=== PATIENT | female | born 1980 | race Two or more races ===

== ENCOUNTER 2017-02-11 19:20 | Outpatient (CLI) | payer MEDICAID ==
[2017-02-11 20:22] LABS: AMNISURE NEGATIVE (NEGATIVE)
[2017-02-11 20:23] LABS: AMNI LOT 55709118; AMNI OBC PASS
== END 2017-02-11 22:42 | disposition home or self-care (01) ==
LOC: LDOP 19:20
PROVIDERS: ATTEND Obstetrics & Gynecology
DX: O09.523 Supervision of elderly multigravida, third trimester (principal); O42.913 Preterm premature rupture of membranes, unspecified as to length of time between rupture and onset of labor, third trimester; O26.893 Other specified pregnancy related conditions, third trimester; R10.2 Pelvic and perineal pain; Z3A.34 34 weeks gestation of pregnancy
CPT/HCPCS: 59025; 76815; 84112; 87210; 87808; 89060; 99211; G0463; Q0114

== ENCOUNTER 2017-02-21 11:14 | Observation (INO) | payer MEDICAID ==
[~2017-02-21] VITALS: Ht 160 cm; Wt 81.8 kg
[2017-02-21 13:15] VITALS: BP 106/65
[2017-02-21] MEDS ORDERED: BETAMETHASONE 6 MG/ML, 5ML IM SCH (13:30)
[2017-02-21] MEDS ORDERED: ONDANSETRON 2MG/ML, 2ML IVPush PRN (13:30)
[2017-02-21] MEDS ORDERED: PENICILLIN GK 5,000,000 UNITS in DEXTROSE 5% 100 ML IVPB ONE (13:30)
[2017-02-21] MEDS: LACTATED RINGERS 1,000 ML IV PRN ×2 (13:48→15:06)
[2017-02-21] MEDS ORDERED: PLEASE ENTER ALLERGIES MC SCH ×2 (14:00)
[2017-02-21] MEDS ORDERED: BETAMETHASONE 6 MG/ML, 5ML IM ONE (14:03)
[2017-02-21 14:38] LABS: HEMATOCRIT 35.6 % (34.6-47.8)
[2017-02-21] MEDS ORDERED: PREN1TAB69 PO (15:34)
[2017-02-21] MEDS ORDERED: SERT50TA5 PO (15:34)
[2017-02-21] MEDS ORDERED: PENICILLIN GK 2,500,000 UNITS in DEXTROSE 5% 100 ML IVPB SCH (16:00)
[2017-02-21] MEDS ORDERED: ONDANSETRON 2MG/ML, 2ML ONE (18:40)
== END 2017-02-21 19:10 | disposition home or self-care (01) ==
LOC: LDOP 11:14 → EDIP 13:36 → LDIP 15:36
PROVIDERS: ADMIT Obstetrics & Gynecology; ATTEND Obstetrics & Gynecology
DX: O62.9 Abnormality of forces of labor, unspecified (principal); O26.893 Other specified pregnancy related conditions, third trimester; M79.605 Pain in left leg; R19.7 Diarrhea, unspecified; O21.2 Late vomiting of pregnancy; Z3A.34 34 weeks gestation of pregnancy
CPT/HCPCS: 36415; 59025; 76815; 81001; 85025; 86850; 86900; 87081; 89060; 93971; 96361; 96365; 96366; 96372; 96375; G0378; J0702; J2405; J2540; J7120; 96360; 96374; Q0114

== ENCOUNTER 2017-02-25 20:44 | Outpatient (CLI) | payer MEDICAID ==
[~2017-02-25] VITALS: Ht 160 cm; Wt 83.0 kg
[~2017-02-25 20:44] MED LIST: PREN1TAB69 PO; SERT50TA5 PO
[2017-02-25 20:48] VITALS: BP 119/56
== END 2017-02-25 23:25 | disposition home or self-care (01) ==
LOC: LDOP 20:44
PROVIDERS: ATTEND Obstetrics & Gynecology
DX: O09.523 Supervision of elderly multigravida, third trimester (principal); O36.8130 Decreased fetal movements, third trimester, not applicable or unspecified; O45.8X3 Other premature separation of placenta, third trimester; O99.343 Other mental disorders complicating pregnancy, third trimester; O26.893 Other specified pregnancy related conditions, third trimester; R10.2 Pelvic and perineal pain; F32.9 Major depressive disorder, single episode, unspecified; Z3A.34 34 weeks gestation of pregnancy
CPT/HCPCS: 36415; 59025; 82731; 99211; G0463

== ENCOUNTER 2017-03-08 02:18 | Outpatient (CLI) | payer MEDICAID ==
[~2017-03-08] VITALS: Ht 160 cm; Wt 82.3 kg
[2017-03-08 02:22] VITALS: BP 127/59
== END 2017-03-08 04:30 | disposition home or self-care (01) ==
LOC: LDOP 02:18
PROVIDERS: ATTEND Obstetrics & Gynecology
DX: O09.523 Supervision of elderly multigravida, third trimester (principal); O62.9 Abnormality of forces of labor, unspecified; O26.893 Other specified pregnancy related conditions, third trimester; O99.343 Other mental disorders complicating pregnancy, third trimester; R10.9 Unspecified abdominal pain; F32.9 Major depressive disorder, single episode, unspecified; Z3A.36 36 weeks gestation of pregnancy
CPT/HCPCS: 59025; 99211; G0463

== ENCOUNTER 2017-03-15 14:10 | Outpatient (CLI) | payer MEDICAID ==
[2017-03-15 15:00] VITALS: BP 124/75
== END 2017-03-15 16:42 | disposition home or self-care (01) ==
LOC: LDOP 14:10
PROVIDERS: ATTEND Obstetrics & Gynecology
DX: O42.92 Full-term premature rupture of membranes, unspecified as to length of time between rupture and onset of labor (principal); Z3A.37 37 weeks gestation of pregnancy
CPT/HCPCS: 59025; 76815; 89060; 99211; G0463; Q0114

== ENCOUNTER 2017-03-17 04:41 | Inpatient (IN) | payer MEDICAID ==
[~2017-03-17] VITALS: Ht 160 cm; Wt 82.3 kg
[2017-03-17] MEDS ORDERED: OXYTOCIN 30U/ 0.9% NaCL 500ML 500 ML ONE (04:45)
[2017-03-17] MEDS ORDERED: NEWBORN KIT ONE (04:45)
[2017-03-17] MEDS ORDERED: LIDOCAINE 1%, 20ML ONE (04:45)
[2017-03-17] MEDS ORDERED: MISOPROSTOL 200 MCG TABLET ONE (04:45)
[2017-03-17] MEDS ORDERED: FENTANYL PF 100 MCG/2ML ONE (06:47)
[2017-03-17] MEDS ORDERED: OXYTOCIN 30U/ 0.9% NaCL 500ML 500 ML IV ONE (06:48)
[2017-03-17] MEDS ORDERED: OXYTOCIN 30U/ 0.9% NaCL 500ML 500 ML IV PRN (06:48)
[2017-03-17] MEDS: LACTATED RINGERS 1,000 ML IV SCH ×3 (06:57→08:56)
[2017-03-17] MEDS: D5%-LACTATED RINGERS 1,000 ML IV SCH ×3 (06:57→22:57)
[2017-03-17] MEDS ORDERED: TERBUTALINE 1 MG/ML, 1ML IVPush PRN (07:00)
[2017-03-17] MEDS ORDERED: FENTANYL PF 100 MCG/2ML IV PRN (07:00)
[2017-03-17] MEDS ORDERED: CALCIUM CARBONATE 500 MG TAB.CHEW PO PRN ×2 (07:00→13:00)
[2017-03-17] MEDS ORDERED: ONDANSETRON 2MG/ML, 2ML IVPush PRN (07:00)
[2017-03-17] MEDS ORDERED: FENTANYL PF 100 MCG/2ML IVPush PRN (07:00)
[2017-03-17 07:22] LABS: HEMATOCRIT 35.7 % (34.6-47.8); HEMOGLOBIN 12.1 g/dL (11.7-16.4)
[2017-03-17] MEDS ORDERED: BUPIVACAINE/PF 0.25% ONE (07:40)
[2017-03-17] MEDS ORDERED: FENTANYL/BUPIV./NS/PF 250 ML EPIDCONT ONE (07:40)
[2017-03-17] MEDS ORDERED: LIDOCAINE/PF 1.5%-EPI 1:200K, 30ML ONE (07:41)
[2017-03-17] MEDS ORDERED: ONDANSETRON 2MG/ML, 2ML ONE (08:41)
[2017-03-17] MEDS: OXYTOCIN 30U/ 0.9% NaCL 500ML 500 ML IV SCH ×2 (12:42→22:42)
[2017-03-17] MEDS ORDERED: MISOPROSTOL 200 MCG TABLET PR PRN (13:00)
[2017-03-17] MEDS ORDERED: MAGNESIUM HYDROXIDE 8%, 30ML UDC PO PRN (13:00)
[2017-03-17] MEDS ORDERED: HYDROcodone/APAP 5/325 TABLET PO PRN (13:00)
[2017-03-17] MEDS ORDERED: LACTATED RINGERS 1,000 ML IV SCH (13:40)
[2017-03-17] MEDS ORDERED: FENTANYL/BUPIV./NS/PF 250 ML EPIDCONT SCH (13:40)
[2017-03-17] MEDS ORDERED: LACTATED RINGERS 1,000 ML IVBOLUS PRN (14:00)
[2017-03-17] MEDS ORDERED: ONDANSETRON 2MG/ML, 2ML IV PRN (14:45)
[2017-03-17] MEDS: IBUPROFEN 600 MG TABLET PO PRN ×2 (15:25→21:27)
[2017-03-17 15:34] VITALS: BP 106/63
[2017-03-17 19:15] VITALS: BP 113/72
[2017-03-17 20:37] LABS: HEMATOCRIT 34.7 % (34.6-47.8); HEMOGLOBIN 11.8 g/dL (11.7-16.4)
[2017-03-17] MEDS: DOCUSATE 100 MG CAPSULE PO PRN (21:27)
[2017-03-17] MEDS: HYDROcodone/APAP 5/325 TABLET PO PRN (22:16)
[2017-03-17] MEDS ORDERED: SERTRALINE 50MG TABLET HOMEMEDPO SCH (23:30)
[2017-03-18 00:50] VITALS: BP 115/71
[2017-03-18] MEDS: IBUPROFEN 600 MG TABLET PO PRN ×2 (03:32→12:23)
[2017-03-18] MEDS: HYDROcodone/APAP 5/325 TABLET PO PRN ×2 (03:32→12:23)
[2017-03-18 06:15] VITALS: BP 109/69
[2017-03-18] MEDS: LACTATED RINGERS 1,000 ML IV SCH (06:57)
[2017-03-18] MEDS: D5%-LACTATED RINGERS 1,000 ML IV SCH (06:57)
[2017-03-18 08:15] VITALS: BP 113/70
[2017-03-18] MEDS ORDERED: DOCU-131 PO (08:17)
[2017-03-18] MEDS ORDERED: IBUP-1222 PO (08:18)
[2017-03-18] MEDS ORDERED: HYDR-3240 PO (08:18)
[2017-03-18] MEDS: DOCUSATE 100 MG CAPSULE PO PRN (08:19)
[2017-03-18] MEDS: OXYTOCIN 30U/ 0.9% NaCL 500ML 500 ML IV SCH (08:42)
[2017-03-18] MEDS ORDERED: PRENATAL VIT/IRON/FA 1 EACH TABLET PO SCH (09:00)
== END 2017-03-18 13:33 | disposition home or self-care (01) | DRG 775 ==
LOC: LDOP 04:41 → UNDOADMIN 04:51 → LDIP 04:51 → 2NW 15:12
PROVIDERS: ADMIT Obstetrics & Gynecology; ATTEND Obstetrics & Gynecology
PROC: 10E0XZZ Delivery of Products of Conception, External Approach (ICD-10-PCS; principal; 2017-03-17)
DX: O34.211 Maternal care for low transverse scar from previous cesarean delivery (principal); O99.354 Diseases of the nervous system complicating childbirth; D25.9 Leiomyoma of uterus, unspecified; F32.9 Major depressive disorder, single episode, unspecified; M79.7 Fibromyalgia; O34.13 Maternal care for benign tumor of corpus uteri, third trimester; O99.344 Other mental disorders complicating childbirth; Z3A.37 37 weeks gestation of pregnancy; Z37.0 Single live birth; Z86.32 Personal history of gestational diabetes; Z86.718 Personal history of other venous thrombosis and embolism; Z88.6 Allergy status to analgesic agent; O09.523 Supervision of elderly multigravida, third trimester
CPT/HCPCS: 36415; 85025; 86850; 86900; 86923; J2405; J3010; J7120